=== PATIENT | female | born 1980 | race Caucasian/White ===

== ENCOUNTER → 2019-04-23 | Outpatient (CLI) | payer BC ==
[~2019-04-23] MED LIST: GADOBENATE DIMEGLUMINE 1 ML IV ONE
--- NOTE | 2019-04-23 13:20 | Diagnostic Imaging Report ---
EXAMINATION: MRI of the brain without and with contrast . HISTORY: Demyelinating disease, upper and lower extremity pain. Prior cervical spine surgery. COMPARISON: None available TECHNIQUE: Precontrast axial DWI, T1, T2, T2 FLAIR, Volumetric T2 FLAIR FS reconstructed in the axial, sagittal and coronal planes. Postcontrast volumetric T1 FS obtained in the coronal plane reconstructed in the axial and sagittal planes Intravenous contrast: 12 mL of MultiHance. FINDINGS: T2 lesions: No typical demyelinating lesions are seen. T1 lesions: None Enhancing lesions: None Corpus callosum volume: Normal. Brain volume: Normal for age. Other: No mass, hydrocephalus, hemorrhage, acute or chronic infarcts. Incidentally noted approximately 10 mm annual region cyst without associated enhancement or mass effect. IMPRESSION: No intracranial abnormalities, particularly no typical demyelinating lesions are seen in the brain parenchyma. Signed by: Dr. Raven Hwang M.D. on 04/23/2019 1:17 PM
--- NOTE | 2019-04-23 13:24 | Diagnostic Imaging Report ---
EXAMINATION: MRI of the cervical and thoracic spine without and with contrast. 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 COMPARISON: None available TECHNIQUE: Pre-contrast sagittal T1, T2, STIR; axial T1, T2. Post contrast axial and sagittal T1. Intravenous Contrast: 12 mL of MultiHance. FINDINGS: Spinal Cord: Spinal cord size: Normal T1 lesions: None Enhancing lesions: None T2 lesions: Cervical spinal cord: Cervico-medullary junction: Tiny right posterolateral cord. C6-C7: Posterior half of the cord and left lateral cord at the level. Thoracic spinal cord: None. Others: Vertebrae: Status post ACDF from C5 to C7, no canal or foraminal stenosis. Discs: Otherwise unremarkable Craniocervical junction: Normal. IMPRESSION: 1. Two cervical spinal cord T2 lesions without cord expansion or enhancement. Compatible with clinical diagnosis of demyelinating disorder, another less likely consideration would include myelomalacia given surgery at this same level, comparison to prior studies is recommended. 2. No thoracic spinal cord lesions. 3. No spinal cord atrophy. Signed by: Dr. Raven Hwang M.D. on 04/23/2019 1:21 PM
== END ==
LOC: MRI 07:56
PROVIDERS: ATTEND Psychiatry & Neurology Clinical Neurophysiology
DX: G37.9 Demyelinating disease of central nervous system, unspecified (principal)
CPT/HCPCS: 70553; 72156; 72157